=== PATIENT | female | born 1955 | race Caucasian/White ===

== ENCOUNTER → 2024-12-05 09:36 | Outpatient (REF) | payer MEDICARE, SELFPAY | LOC: RAD 09:36 | PROVIDERS: ATTENDING PHYSICIAN Internal Medicine | DX: R60.0 Localized edema (principal) | CPT/HCPCS: 93971 ==

== ENCOUNTER 2025-06-11 06:14 | Day surgery (SDC) | payer MEDICARE, SELFPAY ==
[2025-06-02 11:04] LABS: Hematocrit 42.2 % (37.0-47.0); Hemoglobin 14.1 g/dL (12.0-16.0); Mean Corp Hgb Conc. 33.4 g/dL (33.0-37.0); Mean Corpuscular Volume 93.6 fL (81.0-99.0); Nucleated Red Blood Cells % 0 %; Platelet Count 271 10^3/uL (130-400); Red Cell Dist. Width 11.9 % (11.5-14.5)
[2025-06-02 11:18] LABS: Blood Urea Nitrogen 13 mg/dl (7-17); Calcium 10.2 mg/dl (8.4-10.2); Carbon Dioxide 29 mmol/L (22-30); Chloride 105 mmol/L (98-107); Glucose 91 mg/dl (70-99); Potassium 4.9 mmol/L (3.5-5.1); Sodium 139 mmol/L (135-145); eGFR > 60.00
[2025-06-02 14:18] VITALS: BMI 26.1
--- NOTE | 2025-06-02 15:05 | PTCARENOTE ---
Abnormal ECG done 06/02/[address] Arvizu, no further intervention requested.
[2025-06-11] VITALS (9 sets, daily range): BP systolic 107–137; BP diastolic 49–70; BMI 26.1
[2025-06-11] MEDS: TYLENOL 1000 MG PO (11:14)
[2025-06-11] MEDS: NORMOSOL-R/PLASMALYTE-A 1000 IV (11:14)
[2025-06-11] MEDS: DILAUDID 0.25 MG IV (13:54)
[2025-06-11] MEDS: ZOFRAN 4 MG IV (13:54)
[2025-06-11] MEDS: DILAUDID 0.5 MG IV (14:08)
[2025-06-11] MEDS: TORADOL 15 MG IV (14:34)
--- NOTE | 2025-06-11 15:19 | W.IMMPOSTOP ---
Surgical Immed Post Op Note
-
Primary Surgeon: Sylvester Hoyt MD
Assisting Surgeon:
Pre-op Diagnosis: right knee medial meniscus tear
Post-op Diagnosis: right knee medial meniscus tear
Procedure Performed: Arthroscopic right knee partial medial meniscectomy
Anesthesia Type: general
Specimen / Cultures: none
Estimated Blood Loss: 1mL
Complications: none apparent
Operative Findings: posterior root media meniscus tear with stable root attachment; mild chondrosis of patella and medial femoral condyle
Operative dictation #:[id number]
== END 2025-06-11 16:05 | disposition home or self-care (01) ==
LOC: SDS 06:14
PROVIDERS: ATTENDING PHYSICIAN Student in an Organized Health Care Education/Training Program; FAMILY PHYSICIAN Internal Medicine
DX: S83.241A Other tear of medial meniscus, current injury, right knee, initial encounter (principal); X58.XXXA Exposure to other specified factors, initial encounter
CPT/HCPCS: 29881; 36415; 80048; 85025; 93005